=== PATIENT | male | born 1985 | race Caucasian/White ===

== ENCOUNTER 2018-09-11 22:22 | Emergency (ER) | payer MEDICARE, SELFPAY ==
[~2018-09-11] VITALS: Ht 182.9 cm; Wt 113.6 kg
[2018-09-12] MEDS ORDERED: AMOX875T PO (00:57)
[2018-09-12] MEDS ORDERED: ACET30TAB PO (00:57)
[2018-09-12] MEDS ORDERED: KETO10TAB PO (00:57)
[2018-09-12] MEDS ORDERED: AMOXICILLIN 500 MG CAP PO ONE (01:00)
[2018-09-12] MEDS ORDERED: KETOROLAC TROMETHAMINE 10 MG TAB PO ONE (01:00)
[2018-09-12] MEDS ORDERED: ACETAMINOPH W/CODEINE #3 TAB UD PO ONE (01:00)
[2018-09-12] MEDS ORDERED: LIDOCAINE VISCOUS 2% SOLN 15ML UDC MT ONE (01:00)
[2018-09-12 01:25] VITALS: BP 144/66
== END 2018-09-12 01:27 | disposition home or self-care (01) ==
LOC: M ED 22:22
DX: K04.7 Periapical abscess without sinus (principal); K02.9 Dental caries, unspecified; I10 Essential (primary) hypertension; F32.9 Major depressive disorder, single episode, unspecified; F43.10 Post-traumatic stress disorder, unspecified; K58.9 Irritable bowel syndrome, unspecified

== ENCOUNTER 2019-02-13 01:31 | Emergency (ER) | payer SELFPAY ==
[~2019-02-13] VITALS: Ht 182.9 cm; Wt 115.9 kg
[~2019-02-13 01:31] MED LIST: ACET-716 PO; AMOX875T PO; KETO10TAB PO
[2019-02-13] MEDS ORDERED: ONDANSETRON 4MG/2ML VIAL (J2405) IV ONE (02:15)
[2019-02-13] MEDS ORDERED: NS 1,000 ML IV ONE (02:15)
[2019-02-13] MEDS ORDERED: ISOVUE-370 76% 100ML VIAL (Q9967) As Ordered ONE (02:30)
[2019-02-13] MEDS: MORPHINE 4 MG/ML 1ML VIAL/SYRINGE (J2270) IV PRN ×2 (02:36→02:38)
[2019-02-13 02:39] LABS: BASO % 0.5 % (0.0-1.0); EOS # 0.1 10^3/uL (0.0-0.50); EOS % 1.5 % (0.0-3.0); HEMATOCRIT 43.2 % (42.0-52.0); HEMOGLOBIN 14.5 g/dl (13.5-17.5); LYMPH # 2.6 10^3/uL (1.5-4.5); MEAN CORPUSCULAR HEMOGLOBIN 29.3 pg (27.0-33.0); MEAN CORPUSCULAR HGB CONC 33.6 g/dl (32.0-36.5); MEAN CORPUSCULAR VOLUME 87.3 fl (80.0-96.0); MONO # 0.9 10^3/uL (0.0-0.8); MONO % 10.3 % (0.0-5.0); NEUTROPHILS # 4.7 10^3/uL (1.8-7.7); NEUTROPHILS % 56.3 % (36.0-66.0); PLATELET COUNT, AUTOMATED 208 10^3/uL (150-450); RED BLOOD COUNT 4.95 10^6/uL (4.30-6.10); WHITE BLOOD COUNT 8.4 10^3/uL (4.0-10.0)
[2019-02-13 03:22] LABS: BLOOD UREA NITROGEN 21 MG/DL (7-18); CALCIUM LEVEL 8.3 MG/DL (8.5-10.1); CARBON DIOXIDE LEVEL 31 MEQ/L (21-32); CHLORIDE LEVEL 108 MEQ/L (98-107); CK-MB VALUE MASS 8.6 NG/ML (<3.6); CPK CREATINE PHOSPHOKINASE 786 U/L (39-308); CREATININE FOR GFR 1.13 MG/DL (0.70-1.30); GLOMERULAR FILTRATION RATE > 60.0 (>60); GLUCOSE, FASTING 118 MG/DL (70-100); MB/CK RELATIVE INDEX 1.09 (< OR =4); POTASSIUM SERUM 4.1 MEQ/L (3.5-5.1); SODIUM LEVEL 141 MEQ/L (136-145); TROPONIN I < 0.02 NG/ML (< 0.10)
--- NOTE | 2019-02-13 03:57 | REPVR ---
EXAM: CT Abdomen and Pelvis With Contrast EXAM DATE/TIME: 02/13/2019 2:55 AM CLINICAL HISTORY: 34 years old, male; Injury or trauma; Injury history: Tackled during game; Initial encounter; Blunt; Generalized; Additional info: Blunt trauma to chest/abd TECHNIQUE: Imaging protocol: Axial computed tomography images of the abdomen and pelvis with intravenous contrast. Coronal and sagittal reformatted images were created and reviewed. Radiation optimization: All CT scans at this facility use at least one of these dose optimization techniques: automated exposure control; mA and/or kV adjustment per patient size (includes targeted exams where dose is matched to clinical indication); or iterative reconstruction. Contrast material: ISOVUE 370; Contrast volume: 100 ml; Contrast route: IV; COMPARISON: No relevant prior studies available. FINDINGS: Lungs: Minimal right lower lobe fibro-atelectatic change. Liver: The liver attenuation is 56 Hounsfield units and the spleen is 92 Hounsfield units. The liver and spleen are intact. No perihepatic or perisplenic fluid collections are identified. Gallbladder and bile ducts: The gallbladder is somewhat contracted with no stones. Pancreas: Normal. No ductal dilation. Spleen: Normal. No splenomegaly. Adrenals: Normal. No mass. Kidneys and ureters: Normal. No hydronephrosis. Stomach and bowel: Normal. No obstruction. No mucosal thickening. Appendix: A normal appendix is seen. Intraperitoneal space: Normal. No free air. No significant fluid collection. Vasculature: Normal. No abdominal aortic aneurysm. Lymph nodes: Normal. No enlarged lymph nodes. Bladder: Unremarkable as visualized. Reproductive: Unremarkable as visualized. Bones/joints: Degenerative changes of the lumbar spine with bilateral neural foraminal stenosis L5-S1. Soft tissues: Minimal fat filled umbilical hernia. IMPRESSION: 1. There is mild fatty infiltration of the liver. 2. 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 3. Otherwise negative CT abdomen/pelvis. No acute posttraumatic change is seen. Electronically signed by: Elie Haines On 02/13/2019 03:57:31 AM
--- NOTE | 2019-02-13 04:00 | REPVR ---
EXAM: CT Chest With Contrast EXAM DATE/TIME: 02/13/2019 2:55 AM CLINICAL HISTORY: 34 years old, male; Injury or trauma; Injury history: Tackled during game; Initial encounter; Blunt trauma (contusions or hematomas); Additional info: Blunt trauma to chest/abd TECHNIQUE: Imaging protocol: Axial computed tomography images of the chest with intravenous contrast. Coronal and sagittal reformatted images were created and reviewed. Radiation optimization: All CT scans at this facility use at least one of these dose optimization techniques: automated exposure control; mA and/or kV adjustment per patient size (includes targeted exams where dose is matched to clinical indication); or iterative reconstruction. Contrast material: ISOVUE 370; Contrast volume: 100 ml; Contrast route: IV; COMPARISON: No relevant prior studies available. FINDINGS: Lungs: Minimal right lower lobe fibro-atelectatic change. Pleural space: Unremarkable. No pneumothorax. No pleural effusion. Heart: Unremarkable. No cardiomegaly. No pericardial effusion. Pulmonary arteries: The main pulmonary artery measures 29 mm. Aorta: The ascending thoracic aorta measures 30 mm. Lymph nodes: Unremarkable. No enlarged lymph nodes. Bones/joints: Unremarkable. No acute fracture. Soft tissues: Unremarkable. IMPRESSION: 1. Minimal right lower lobe fibro-atelectatic change. 2. Otherwise negative CT chest. No acute posttraumatic change is seen. Electronically signed by: Elie Haines On 02/13/2019 04:00:45 AM
[2019-02-13 04:45] VITALS: BP 124/67
[2019-02-13] MEDS ORDERED: OXYCODONE/APAP 5MG/325MG(BULK FOR ED) 1 TABLET PO ONE (04:45)
--- NOTE | 2019-02-14 17:08 | ECGEPIP ---
[facility] - ED Test Date: 2019-02-13 Pat Name: MCKENZIE JOSE Department: Room: - Gender: Male Tug Captain: RUTHANN : 1985 Requested By: LALITA Chacon Order Number: [id number] Reading MD: Surjit Flanagan Measurements Intervals Blanket Rate: 79 P: 35 CO: 163 QRS: 12 QRSD: 101 T: QT: 368 QTc: 423 Interpretive Statements SINUS RHYTHM Nonspecific T wave abnormality Comparison tracing not on file Electronically Signed on 02-14-2019 17:08:19 EDT by Surjit Flanagan
== END 2019-02-13 05:19 | disposition home or self-care (01) ==
LOC: M ED 01:31
DX: R10.9 Unspecified abdominal pain (principal); M48.07 Spinal stenosis, lumbosacral region; K76.0 Fatty (change of) liver, not elsewhere classified
CPT/HCPCS: 71260; 74177; 80047; 80048; 82550; 82553; 84484; 85025; 93005; 93041; 94760; 96374; 96375; 99285; J2270; J2405; Q9967